=== PATIENT | female | born 1995 | race Caucasian/White ===

== ENCOUNTER 2021-05-30 08:47 | Emergency (ER) | payer MEDICAID ==
[~2021-05-30] VITALS: Ht 170.2 cm; Wt 82.0 kg
[2021-05-30 09:20] VITALS: BP 127/73
[2021-05-30] MEDS ORDERED: MAGNESIUM/ALUMINUM HYDROXIDE/SIMETHICONE 30ML UDC PO STA (09:38)
[2021-05-30] MEDS ORDERED: VISCOUS LIDOCAINE 2% 15 ML UDC PO STA (09:38)
[2021-05-30] MEDS ORDERED: FAMOTIDINE 20MG/2ML VIAL IV STA (09:38)
[2021-05-30] MEDS ORDERED: SODIUM CHLORIDE 0.9% 1,000 ML IV ONE (09:45)
[2021-05-30 10:17] LABS: CLARITY URINE CLEAR (CLEAR); COLOR URINE YELLOW (YELLOW); KETONES URINE NEGATIVE (NEGATIVE); LEUKOCYTE ESTERASE URINE NEGATIVE (NEGATIVE); NITRITE URINE POSITIVE (NEGATIVE); OCCULT BLOOD URINE NEGATIVE (NEGATIVE); PH URINE 7.5 (4.5-8.0); PROTEIN URINE NEGATIVE (NEGATIVE); SPECIFIC GRAVITY URINE 1.009 (1.005-1.030); UROBILINOGEN URINE 0.2 E.U./dL (0.2-1.0)
[2021-05-30 10:51] LABS: CANNABINOID URINE SCREEN NEGATIVE (NEGATIVE); PHENCYCLIDINE URINE SCREEN NEGATIVE (NEGATIVE)
[2021-05-30 10:52] LABS: *AMPHETAMINES SCREEN URINE NEGATIVE (NEGATIVE); *BARBITURATES SCREEN URINE NEGATIVE (NEGATIVE); *BENZODIAZEPINES SCREEN URINE NEGATIVE (NEGATIVE); *COCAINE SCREEN URINE NEGATIVE (NEGATIVE); METHADONE URINE SCREEN NEGATIVE (NEGATIVE); OPIATES URINE SCREEN NEGATIVE (NEGATIVE)
== END 2021-05-30 10:22 | disposition left against medical advice (07) ==
LOC: ER 08:47
DX: R10.13 Epigastric pain (principal); R10.11 Right upper quadrant pain; F17.210 Nicotine dependence, cigarettes, uncomplicated
CPT/HCPCS: 80305; 81003; 81025; 96361; 96374; 99283; J3490; J7030